=== PATIENT | female | born 1995 | race African-American/Black ===

== ENCOUNTER 2016-05-22 15:07 | Emergency (ER) ==
--- NOTE | 2016-05-22 15:43 | PROVIDER DOCUMENTATION ---
[facility] Abuse/Overdose - General Source: patient, family Unable to obtain history due to:: altered - History of Present Illness-Drug/Alcohol This episode of drinking or use began:: unsure Situational problems related to:: reports: N/A Psychiatric Complaints: reports: altered mental status Associated Symptoms: reports: weakness. denies: chest pain, diarrhea, dizziness , shortness of breath, vomiting Any injuries associated with this episode of intoxication?: No Similar Symptoms Previously?: Yes Recently seen or treated by another doctor?: No - Substance Abuse Substance Use: reports: other (synthetic) <Ang Vail - Last Filed: 05/22/16 15:39> <Santi Busch I - Last Filed: 05/22/16 16:59> - General Chief Complaint: Overdose Stated Complaint: GENERAL Time Seen by Provider: 05/22/16 15:27 Allergies/Adverse Reactions: Allergies Allergy/AdvReac Type Severity Reaction Status Date / Time No Known Allergies Allergy Verified 05/22/16 15:37 Home Medications: Home Medication List Medication Instructions Recorded Confirmed Last Taken Type No Home Medications 05/22/16 05/22/16 Unknown History - History of Present Illness-Drug/Alcohol Nature of Presenting Problem: Patient is a 20 y/o F that presents to the ER after smoking synthetic (spice) today. She reports having history of smoking spice. She denies any chest pain, shortness of breath, n/v/d. She is lethargic and slow to respond, but does open eyes and answer questions. (Ang Vail) Review of Systems - Adult - REVIEW OF SYSTEMS - ADULT ROS:: limited per condition Constitutional: denies: chills, fever Eyes: reports: no symptoms reported Ears, Nose, Mouth & Throat: reports: no symptoms reported Cardiovascular: denies: chest pain, palpitations, syncope Respiratory: denies: cough, shortness of breath, wheezing Gastrointestinal: denies: abdominal pain, diarrhea, nausea, vomiting Genitourinary: reports: no symptoms reported Musculoskeletal: reports: no symptoms reported Integumentary: reports: no symptoms reported Neurological: denies: dizziness/vertigo, headache/migraines, numbness Psychiatric: reports: alcohol/drug dependence. denies: panic attacks, suicidal thoughts Endocrine: reports: no symptoms reported Hematologic/Lymphatic: reports: no symptoms reported Allergic/Immunologic: reports: no symptoms reported All Other Systems: Reviewed and Negative <Ang Vail - Last Filed: 05/22/16 15:39> Past History - Adult - PAST MEDICAL HISTORY-ADULT Review of Records: reports: Old Records Reviewed, Nursing Assessment Review, Medications Reviewed - PRIOR SURGERIES/PROCEDURES Surgical/Procedure History: reports: cholecystectomy - IMMUNIZATION STATUS Childhood Immunizations: See Nurse Assessment Flu Vaccine: See Nurse Assessment - FAMILY HISTORY Family History: reviewed, not pertinent - SOCIAL HISTORY Smoking: cigarettes, less than 1 pack/day Substance Use: other (synthetic) Living Situation: family <Ang Vail - Last Filed: 05/22/16 15:39> Physical Exam-General - PHYSICAL EXAM-ADULT Exam Limited by: pt condition - CONSTITUTIONAL General Appearance: lethargic, slow to respond - HEAD, EARS, NOSE, MOUTH & THROAT HENMT: normocephalic/atraumatic, moist mucous membranes, normal ENT inspection - NECK Neck: full range of motion, normal inspection - RESPIRATORY Respiratory: lungs clear, normal breath sounds, no respiratory distress, no accessory muscle use - CARDIOVASCULAR Cardiovascular: no murmur, tachycardia - GASTROINTESTINAL (ABDOMEN) Abdominal Exam: normal bowel sounds, non tender, soft, no organomegaly, no pulsatile mass - MUSCULOSKELETAL Extremity: normal range of motion, normal inspection - SKIN Integumentary: normal color, warm/dry - NEUROLOGIC Neurologic: negative: facial droop, focal weakness, motor weakness, sensory deficit - PSYCHIATRIC Psych/Mental Status: other (lethargic). negative: anxious <Ang Vail - Last Filed: 05/22/16 15:39> Progress <Ang Vail - Last Filed: 05/22/16 15:39> <Santi Busch I - Last Filed: 05/22/16 16:59> - PLAN OF CARE/RESULTS Progress/Plan/Lab Results: plan of care-labs, ekg (Ang Vail) 1657: Patient more alert and oriented now. Have discussed positive hcg with patient, who is unaware that she is . (Santi Busch I) Departure <Ang Vail - Last Filed: 05/22/16 15:39> - Departure Time of Disposition Order: 16:58 Certified Medical Emergency: Emergent <Santi Busch I - Last Filed: 05/22/16 16:59> - Departure DIAGNOSIS: Intrauterine , Narcotic abuse Disposition: HOME 01 Condition: Stable Additional Instructions: I have discussed results with patient and family, and they have agreed to take patient home. Patient is hemodynamically stable. Attestation - Scribe Verification/Attestation Scribe:: Ang Vail Acting as Scribe for:: Santi Busch Scribe documention review:: This chart was documented by a scribe and accurately reflects the service the provider performed and the decisions made by the provider. <Ang Vail - Last Filed: 05/22/16 15:39> Physician Attestation - Physician Attestation I, the provider, attest to the following statement:: Santi Busch Physician documentation Attestation:: This documentation recorded by the scribe accurately reflects the service I personally performed and the decisions made by me. <Ang Vail - Last Filed: 05/22/16 15:39> - Physician Attestation I, the provider, attest to the following statement:: Santi Busch Physician documentation Attestation:: This documentation recorded by the scribe accurately reflects the service I personally performed and the decisions made by me. <Santi Busch I - Last Filed: 05/22/16 16:59>
[2016-05-22 15:57] LABS: MANUAL DIFF NEEDED? NO
[2016-05-22 16:00] LABS: BASO% 0.1 % (0.0-0.8); EOS# 0.01 X1000 (0.0-0.7); EOS% 0.1 % (0.0-10.0); HEMATOCRIT 36.7 % (37.0-47.0); HEMOGLOBIN 12.1 g/dL (12.0-16.0); IMM GRAN# 0.05 X1000 (0.0-0.04); IMM GRAN% 0.4 % (0.0-0.5); LYMPH# 1.58 X1000 (1.2-3.4); LYMPH% 11.9 % (20.5-51.1); MCH 27.8 PG (27-31); MCV 84.2 FL (81-99); MONO# 0.88 X1000 (0.11-0.59); MONO% 6.6 % (1.7-9.3); MPV 10.2 FL (7.4-10.4); NEUT% 80.9 % (42.2-75.2); PLT 232 X1000 (130-400); RBC 4.36 XMIL (4.2-5.4)
[2016-05-22 16:18] LABS: AGAP 14; ALBUMIN 3.9 g/dL (3.5-5.0); ALKALINE PHOSPHATASE 78 U/L (32-104); BUN 10 mg/dL (8-22); CALCIUM 9.6 mg/dL (8.8-10.2); CHLORIDE 97 mmol/L (98-107); COSMO 267; GOT 19 U/L (10-30); GPT 13 U/L (10-36); POTASSIUM 4.3 mmol/L (3.5-5.1); SODIUM 134 mmol/L (136-145); TCO2 23 mmol/L (25-35); TOTAL BILIRUBIN 0.32 mg/dL (0.20-1.00); TOTAL PROTEIN 7.3 g/dL (6.3-8.3)
[2016-05-22 16:32] LABS: ACETAMINOPHEN < 1.2 ug/mL (10-30)
--- NOTE | 2016-05-22 16:34 | EKG Report ---
Test Performed on : 05/22/2016 4:10:29 PM Test Reason : Suspected Overdose Blood Pressure : / mmHG Vent. Rate : 093 BPM Atrial Rate : 093 BPM P-R Int : 134 ms QRS Dur : 084 ms QT Int : 336 ms P-R-T Axes : 013 022 007 degrees QTc Int : 417 ms Normal sinus rhythm. Normal ECG No previous ECGs available Unconfirmed Result
[2016-05-22 16:49] LABS: UR AMPHETAMINES QUAL NONE DETECTED (NONE DETECT); UR BARBITUATES QUAL NONE DETECTED (NONE DETECT); UR BENZODIAZEPIN QUAL NONE DETECTED (NONE DETECT); UR CANNABINOIDS QUAL NONE DETECTED (NONE DETECT); UR COCAINE QUAL NONE DETECTED (NONE DETECT); UR METHADONE QUAL NONE DETECTED (NONE DETECT); UR OPIATES QUAL NONE DETECTED (NONE DETECT); UR OXYCODONE QUAL NONE DETECTED (NONE DETECT); UR PCP QUAL NONE DETECTED (NONE DETECT)
[2016-05-22 17:31] VITALS: BP 134/88
== END 2016-05-22 17:31 | disposition home or self-care (01) ==
LOC: ED 15:07
DX: O99.320 Drug use complicating pregnancy, unspecified trimester (principal); F19.10 Other psychoactive substance abuse, uncomplicated; O99.330 Smoking (tobacco) complicating pregnancy, unspecified trimester; F17.210 Nicotine dependence, cigarettes, uncomplicated; O26.899 Other specified pregnancy related conditions, unspecified trimester; R00.0 Tachycardia, unspecified; R53.83 Other fatigue
CPT/HCPCS: 80053; 81025; 82948; 85025; 93005; G0480; 80320; 80324; 80329; 80345; 80346; 80349; 80353; 80358; 80361; 80365; 83992

== ENCOUNTER 2016-05-23 21:38 | Emergency (ER) ==
--- NOTE | 2016-05-23 23:00 | PROVIDER DOCUMENTATION ---
HPI-General Adult - General Source: patient - History of Present Illness -Gen Adult Nature of Presenting Problems: pt is a 20yof presenting to the ed c/o abd pain. pt was seen in ed yesterday after smoking spice and found out she was 8 weeks . today she woke up with left sided abd pain and its gotten worse all day. pt has had nausea and vomiting. pt denies fever or diarrhea. pt has a small hematoma on left forearm from iv last pm. pt has one child and she states "shocked to find out she was yesterday", no other complaints at this time. Location of Pain/Injury: reports: abdomen (left upper) Pain Radiation: reports: no radiation Quality of Pain: reports: aching, sharp Severity: reports: moderate Onset/Duration: reports: 4-6 hours ago Timing: reports: still present Context/Activities at Onset: reports: light activity Modifying Factors: improves with: nothing Associated Symptoms: reports: nausea, vomiting. denies: back/neck pain, chest pain, fever/chills, genitourinary problems, shortness of breath Similar Symptoms Previously?: No Recently seen or treated by another doctor?: No <Glo Villalobos - Last Filed: 05/23/16 23:59> <Damien Zelaya - Last Filed: 05/24/16 00:05> - General Chief Complaint: Request RX Stated Complaint: LT SIDE PAIN, N/V/D Time Seen by Provider: 05/23/16 22:51 Allergies/Adverse Reactions: Patient Allergies Allergy/AdvReac Type Severity Reaction Status Date / Time No Known Allergies Allergy Verified 05/23/16 21:51 Home Medications: Home Medication List Medication Instructions Recorded Confirmed Last Taken Type No Home Medications 05/22/16 05/23/16 Unknown History Review of Systems - Adult - REVIEW OF SYSTEMS - ADULT Constitutional: reports: no symptoms reported Eyes: reports: no symptoms reported Ears, Nose, Mouth & Throat: reports: no symptoms reported Cardiovascular: reports: no symptoms reported Respiratory: reports: no symptoms reported Gastrointestinal: reports: see HPI, abdominal pain, nausea, vomiting. denies: diarrhea, poor appetite Genitourinary: reports: no symptoms reported Musculoskeletal: reports: no symptoms reported Integumentary: reports: no symptoms reported Neurological: reports: no symptoms reported Psychiatric: reports: no symptoms reported Endocrine: reports: no symptoms reported Hematologic/Lymphatic: reports: no symptoms reported Allergic/Immunologic: reports: no symptoms reported All Other Systems: Reviewed and Negative <Glo Villalobos - Last Filed: 05/23/16 23:59> Past History - Adult - PAST MEDICAL HISTORY-ADULT Review of Records: reports: Old Records Reviewed, Nursing Assessment Review, Medications Reviewed, Social history reviewed & non-contributory. Major Childhood Illnesses: reports: denies history Cardiovascular: reports: denies history Respiratory: reports: denies history Gastrointestinal: reports: denies history Obstetrical/Gynecological: reports: denies history Genitourinary: reports: denies history Musculoskeletal: reports: denies history Neurological: reports: denies history Endocrine/Immune: reports: denies history Other Conditions: reports: denies history - PRIOR SURGERIES/PROCEDURES Surgical/Procedure History: reports: cholecystectomy - IMMUNIZATION STATUS Childhood Immunizations: See Nurse Assessment Flu Vaccine: See Nurse Assessment - FAMILY HISTORY Family History: reviewed, not pertinent - SOCIAL HISTORY Smoking: cigarettes, less than 1 pack/day Provider spent 3-5 mins advising pt. on dangers of tobacco.: Discussed manners to quit use, and f/u contacts for add'l counseling. Substance Use: none/never, denies Alcohol Use Frequency: never Living Situation: family <Glo Villalobos - Last Filed: 05/23/16 23:59> Physical Exam-General - PHYSICAL EXAM-ADULT Initial Vital Signs Reviewed: Yes - CONSTITUTIONAL General Appearance: appears well, alert, mild distress, anxious - EYES Eyes: PERRL/EOMI, pink conjunctivae - HEAD, EARS, NOSE, MOUTH & THROAT HENMT: normocephalic/atraumatic, moist mucous membranes, normal ENT inspection, TMs normal, pharynx normal - NECK Neck: non-tender, full range of motion, supple, normal inspection - RESPIRATORY Respiratory: chest non-tender, lungs clear, normal breath sounds, no pleuratic chest pain, no respiratory distress, no accessory muscle use - CARDIOVASCULAR Cardiovascular: normal peripheral pulses, regular rate, rhythm, no edema, no gallop, no JVD, no murmur - GASTROINTESTINAL (ABDOMEN) Abdominal Exam: normal bowel sounds, soft, no organomegaly, no pulsatile mass, abnormal bowel sounds (hyperactive), tenderness (LLQ). negative: non tender, abdominal bruit - LYMPHATIC Lymphatic: no adenopathy - MUSCULOSKELETAL Back Exam: normal inspection, no CVA tenderness, no vertebral tenderness Extremity: normal range of motion, non-tender, normal gait, normal inspection, no pedal edema, no calf tenderness, normal capillary refill - SKIN Integumentary: normal color, normal turgor, warm/dry - NEUROLOGIC Neurologic: lifeguard II-XII nml as tested, grossly normal, no motor/sensory deficits - PSYCHIATRIC Psych/Mental Status: normal mood/affect, normal thought content, normal thought process, oriented x 3 <Glo Villalobos - Last Filed: 05/23/16 23:59> Progress - PLAN OF CARE/RESULTS Progress/Plan/Lab Results: Orders Category Date Time Status US OBS COMPLETE < 14 WKS [US] Stat Exams 05/23/16 23:07 Taken Vital Signs - 24 hr 05/23/16 21:45 Temperature 98.5 F Pulse Rate 96 H Respiratory 18 Rate Blood Pressure 127/80 O2 Sat by Pulse 100 Oximetry - ULTRASOUND (By Radiology) 1 US Study: other (US OB - SINGLE LIVE INTRAUTERINE PREG EST 8WKS AND 4 DAYS BY CROWN-RUMP LENGTH) <Glo Villalobos - Last Filed: 05/23/16 23:59> Departure <Glo Villalobos - Last Filed: 05/23/16 23:59> - Departure Time of Disposition Order: 00:04 Certified Medical Emergency: Emergent <Damien Zelaya - Last Filed: 05/24/16 00:05> - Departure DIAGNOSIS: Abdominal bloating, Intrauterine Disposition: HOME 01 Condition: Good Attestation - Scribe Verification/Attestation Scribe:: Glo Villalobos Acting as Scribe for:: Damien Zelaya Scribe documention review:: This chart was documented by a scribe and accurately reflects the service the provider performed and the decisions made by the provider. <Glo Villalobos - Last Filed: 05/23/16 23:59> Physician Attestation - Physician Attestation I, the provider, attest to the following statement:: Damien Zelaya Physician documentation Attestation:: This documentation recorded by the scribe accurately reflects the service I personally performed and the decisions made by me. <Glo Villalobos - Last Filed: 05/23/16 23:59>
[2016-05-24 00:25] VITALS: BP 124/73
--- NOTE | 2016-05-24 08:22 | Diag Imaging Result Document ---
PROCEDURE NAME: US OBS COMPLETE < 14 WKS - 05/23/2016 OB ULTRASOUND: FINDINGS: There is a viable intrauterine gestation with a heart rate of 180 beats per minute and yolk sac. By crown-rump length, the estimated gestational age is 8 weeks 4 days +/-5 days. There are no adnexal masses or abnormal fluid collections. The cervix is closed. There are no previous studies for this available for comparison. IMPRESSION: Viable intrauterine gestation at 8 weeks 4 days by ultrasound.
== END 2016-05-24 00:25 | disposition home or self-care (01) ==
LOC: ED 21:38
DX: O26.891 Other specified pregnancy related conditions, first trimester (principal); R10.32 Left lower quadrant pain; R14.0 Abdominal distension (gaseous); Z3A.08 8 weeks gestation of pregnancy; O21.0 Mild hyperemesis gravidarum; O99.331 Smoking (tobacco) complicating pregnancy, first trimester; F17.210 Nicotine dependence, cigarettes, uncomplicated; Z71.6 Tobacco abuse counseling
CPT/HCPCS: 76801